=== PATIENT | male | born 1995 | race Native Hawaiian/Other Pacific Islander ===

== ENCOUNTER 2021-01-16 15:32 | Emergency (ER) | payer OTHER ==
[~2021-01-16] VITALS: Ht 182.9 cm; Wt 92.1 kg
[2021-01-16 19:20] VITALS: BP 146/85; TEMP 97.8
== END 2021-01-16 19:20 | disposition home or self-care (01) ==
LOC: ED 15:32
DX: S93.691A Other sprain of right foot, initial encounter (principal); S93.491A Sprain of other ligament of right ankle, initial encounter; X50.1XXA Overexertion from prolonged static or awkward postures, initial encounter; Y93.68 Activity, volleyball (beach) (court); Y92.89 Other specified places as the place of occurrence of the external cause
CPT/HCPCS: 96372; 99283; J1885